=== PATIENT | male | born 1945 | race Caucasian/White ===

== ENCOUNTER 2019-09-12 11:20 | Inpatient (IN) | payer MEDICARE, BC ==
[~2019-09-12] VITALS: Ht 188 cm; Wt 90.9 kg
--- NOTE | 2019-09-12 11:36 | NUR ---
PT ARRIVED VIA WHEELCHAIR TO ROOM, AT BEDSIDE BUT WAS INFORMED SHE COULD STAY ONLY A SHORT AMOUNT OF TIME. WILL PLACE I/V AND DO ADMISSION SHORTLY. CL INREACH, SRX2. PT IS ALERT AND ORIENTED, UP WITHOUT ASSIST.
[2019-09-12] MEDS ORDERED: BAYER CHEWABLE81 MG PO (11:45)
[2019-09-12] MEDS ORDERED: COZAAR50 MG PO (11:45)
[2019-09-12] MEDS ORDERED: FLOMAX0.4 MG PO (11:45)
[2019-09-12] MEDS ORDERED: LIPITOR10 MG PO (11:46)
[2019-09-12] MEDS ORDERED: PLAVIX75 MG PO (11:47)
--- NOTE | 2019-09-12 11:58 | NUR ---
PT HAD GRAFT IN GROIN D/T RIGHT KNEE ANURYSIM.
[2019-09-12 13:00] LABS: BASOPHILS 0.2 % (0-2); HEMATOCRIT 41.4 % (42.0-54.0); HEMOGLOBIN 13.4 g/dL (13.5-17.5); LYMPHOCYTES 18.9 % (15-50); MCH 30.2 pg (26.0-34.0); MCHC 32.4 g/dL (31.0-37.0); MCV 93.5 fL (80.0-100.0); MEAN PLATELET VOLUME 9.3 fL (7.4-10.4); MONOCYTES 8.8 % (2-11); NEUTROPHILS 65.1 % (40-80); PLATELET COUNT 199 10x3/uL (130-400); RBC 4.43 10x6/uL (4.20-6.10); RDW 13.8 % (11.5-14.5); WBC 4.9 10x3/uL (4.8-10.8)
[2019-09-12 13:17] LABS: ALBUMIN 3.9 g/dL (3.4-5.0); ALKALINE PHOSPHATASE 107 U/L (30-120); ALT (SGPT) 20 U/L (10-68); BILIRUBIN - TOTAL 0.49 mg/dL (0.2-1.3); CALC OSMOLALITY 281 mosm/kg (275-300); CALCIUM 8.9 mg/dL (8.5-10.1); CARBON DIOXIDE 25.7 mmol/L (21.0-32.0); CHLORIDE - SERUM 106 mmol/L (98-107); CREATININE - SERUM 1.1 mg/dL (0.6-1.3); GLUCOSE 97 mg/dL (74-106); MAGNESIUM - SERUM 2.1 mg/dL (1.8-2.4); PHOSPHOROUS 4.2 mg/dL (2.5-4.9); POTASSIUM - SERUM 4.2 mmol/L (3.5-5.1); PROTEIN - SERUM 7.5 g/dL (6.4-8.2); SODIUM 140 mmol/L (136-145); TROPONIN-I < 0.017 ng/mL (0.000-0.060); UREA NITROGEN 20 mg/dL (7-18); eGFR NON AFRICAN AMERICAN 69 mL/min (90-120)
[2019-09-12 13:57] VITALS: BP 177/81
[2019-09-12 14:29] LABS: % SATURATION 27 % (15-55); IRON 77 ug/dl (35-150); TOTAL IRON BIND CAPACITY 278 ug/dl (260-445); UNSAT IRON BIND CAPACITY 201 ug/dl (150-375)
--- NOTE | 2019-09-12 14:38 | NUR ---
PT ALERT AND OREINTED, STARTED FLUIDS/MEDS INDICATED. PT HAD ALREADY TAKEN ALL DAILY DOSES OF HOME MEDICATIONS. NO COMPLAINTS OR CONCERNS, ALL QUESTIONS ANSWERED TO THE BEST OF MY ABILITY. CL IN REACH, SRX2.
[2019-09-12 17:46] LABS: APTT 27.9 SECONDS (22.8-39.4); INR 1.03 (0.85-1.17); PROTIME 13.4 SECONDS (11.6-15.0)
[2019-09-12 17:51] VITALS: BP 189/86
[2019-09-12 18:16] VITALS: BP 177/81; BMI 26.3
[2019-09-12 18:17] LABS: D-DIMER-QUANTITATIVE 6.6 ug/mLFEU (0.20-0.54)
--- NOTE | 2019-09-12 18:27 | NUR ---
PT HAD ELIVATED JIHAN, CALLED IN TO [facility], ORDERED CTA CHEST PE PROTOCOL. PT WAS GIVEN URINAL AND HAS YET TO URINATE, UNABLE TO COLLECT URINE SPECIMINE ON MY SHIFT.
[2019-09-12 19:29] LABS: BILIRUBIN NEGATIVE (NEGATIVE); GLUCOSE NEGATIVE (NEGATIVE); KETONE NEGATIVE (NEGATIVE); NITRITE NEGATIVE (NEGATIVE); RED CELLS - URINE 0-5 /hpf (0-5); UROBILINOGEN NORMAL (NORMAL); WHITE CELLS - URINE OCC /hpf (NEGATIVE)
[2019-09-12 20:27] VITALS: BP 192/90
--- NOTE | 2019-09-12 20:45 | NUR ---
PT BACK FROM CT-A. HE STATES HE IS WORRIED ABOUT THE RESULTS. HE DENIES PAIN. HE STATES HE GETS VERY SHORT OF BREATH WHEN HE MOVES AROUND. HIS O2 SAT ON ROOM AIR IS 94%. HE DENIES PAIN OR NEEDS. CALL LIGHT WITHIN REACH AND BED IS LOW.
[2019-09-12 21:47] VITALS: BP 172/89
[2019-09-12 23:43] VITALS: BP 167/77
[2019-09-13 05:23] VITALS: BP 184/106
[2019-09-13 06:10] VITALS: BP 168/78
[2019-09-13 06:46] LABS: BASOPHILS 0.2 % (0-2); EOSINOPHILS 0 % (0-7); HEMATOCRIT 38.4 % (42.0-54.0); HEMOGLOBIN 12.5 g/dL (13.5-17.5); IMMATURE GRANULOCYTES 0.2 % (0-5); LYMPHOCYTES 8.6 % (15-50); MCHC 32.6 g/dL (31.0-37.0); MCV 92.3 fL (80.0-100.0); MEAN PLATELET VOLUME 9.6 fL (7.4-10.4); MONOCYTES 1.9 % (2-11); NEUTROPHILS 89.1 % (40-80); PLATELET COUNT 197 10x3/uL (130-400); RBC 4.16 10x6/uL (4.20-6.10); RDW 13.7 % (11.5-14.5)
[2019-09-13 06:47] LABS: CALCIUM 9.2 mg/dL (8.5-10.1); CARBON DIOXIDE 22.7 mmol/L (21.0-32.0); CREATININE - SERUM 1.3 mg/dL (0.6-1.3); POTASSIUM - SERUM 4.7 mmol/L (3.5-5.1)
[2019-09-13 07:06] LABS: WBC 6.2 10x3/uL (4.8-10.8)
[2019-09-13 09:21] VITALS: BP 156/80
[2019-09-13 13:03] VITALS: BP 146/72
[2019-09-13 13:23] VITALS: Ht 188 cm; Wt 90.9 kg
[2019-09-13 17:38] VITALS: BP 147/82
--- NOTE | 2019-09-13 19:00 | NUR ---
ALERT AND AWAKE NEEDS SEN TO BED LOW AND LOCKED AND CALL LIGHT IS WITH PT
[2019-09-13 21:31] VITALS: BP 172/93
[2019-09-14 00:30] VITALS: BP 196/98
--- NOTE | 2019-09-14 04:11 | NUR ---
recheck bp 190/94
[2019-09-14 04:39] VITALS: BP 215/120
[2019-09-14 06:28] LABS: BASOPHILS 0.1 % (0-2); EOSINOPHILS 0 % (0-7); HEMATOCRIT 41.7 % (42.0-54.0); HEMOGLOBIN 13.4 g/dL (13.5-17.5); IMMATURE GRANULOCYTES 0.3 % (0-5); MCHC 32.1 g/dL (31.0-37.0); MCV 93.3 fL (80.0-100.0); MEAN PLATELET VOLUME 9.7 fL (7.4-10.4); MONOCYTES 2.7 % (2-11); NEUTROPHILS 88.9 % (40-80); PLATELET COUNT 221 10x3/uL (130-400); RBC 4.47 10x6/uL (4.20-6.10)
[2019-09-14 06:35] LABS: ANION GAP 15.8 mmol/L (8-16); CALCIUM 9.2 mg/dL (8.5-10.1); CARBON DIOXIDE 23.1 mmol/L (21.0-32.0); CREATININE - SERUM 1.2 mg/dL (0.6-1.3); POTASSIUM - SERUM 4.9 mmol/L (3.5-5.1)
[2019-09-14 06:36] LABS: WBC 7.8 10x3/uL (4.8-10.8)
[2019-09-14 07:59] VITALS: BP 190/98
[2019-09-14 11:41] VITALS: BP 147/77
--- NOTE | 2019-09-14 12:50 | NUR ---
WALK TEST PERFORMED. PT O2 SATS ON ROOM AIR BEFORE AND AFTER WALKING WERE 97%.
--- NOTE | 2019-09-14 13:13 | NUR ---
I have reviewed this patient and I concur with the Shift Assessment completed by the Licensed Practical Nurse today this shift.
--- NOTE | 2019-09-14 14:13 | MORECARE ---
CASE MANAGEMENT DISCHARGE SUMMARY PATIENT: TUAN MEYER UNIT: [id number] ADM DATE: 09/12/19 AGE: 74 : 44 SEX: M ROOM/BED: D.5466 AUTHOR: TARIK MENENDEZ PHYSICIAN: REFERRING PHYSICIAN: AUTUMN ODONNELL MD DATE OF SERVICE: 09/14/19 Discharge Plan Patient Name: TUAN MEYER Facility: [facility]:[place] : 1945 Planned Disposition: Home Anticipated Discharge Date: Discharge Date: Expected LOS: Initial Reviewer: [id number] Initial Review Date: 09/12/2019 Generated: 09/14/19 3:13 pm DCP- Discharge Planning Updated by [id number]: Rosette Ortez on 09/14/19 12:[address] CM met with patient to complete initial dc planning assessment. CM educated patient on the CM role and verbal consent given by patient to complete assessment. CM verified patient's address, phone number, and emergency contact phone numbers. Patient lives at home with his , Abbie ([phone]. Patient currently is independent of all ADL's. At discharge patient plans to return home and feels this is a safe discharge. Patient denied further known discharge needs at this time. . Transportation provider at discharge will be his Abbie . CM will continue to follow and will assist as needed with dc plans/needs. Rosette Ortez MSN,RN,CM Patient Name: TUAN MEYER Page [phone] at 1413 All edits/amendments must be made on the electronic document DICTATION DATE: 09/14/19 1413 DIRECTOR HEMATOLOGY: SAVAGE 09/14/19 1413 RPT#: [id number] DC DATE: STATUS: ADM IN [facility] [address] [place] [address] END OF REPORT
--- NOTE | 2019-09-14 16:06 | NUR ---
ATTEMPTED TO PAGE CARDIOLOGY ABOUT PATIENTS DISCHARGE AND WAS UNSUCCESSFUL EVERYTIME. PT NOW THREATENING TO LEAVE AMA. WILL GO AHEAD AND DC PT.
--- NOTE | 2019-09-14 16:13 | NUR ---
PT DISCHARGED HOME VIA WHEELCHAIR WITH FAMILY. PIV REMOVED WITH CATHETER TIP FULLY INTACT. PT SIGNED PROPER DISCHARGE INSTRUCTIONS AND REMOVED ALL VALUABLES FROM THE ROOM. NEVER RECEIVED RETURN PAGE FROM CARDIOLOGY.
--- NOTE | 2019-09-15 08:04 | EC ---
PATIENT:TUAN MEYER DATE OF SERVICE: 09/12/19 SEX: M MEDICAL RECORD: [id number] DATE OF : 43 LOCATION:D.M2 D.213 AGE OF PATIENT: 74 ADMISSION DATE: 09/12/19 REFERRING PHYSICIAN: INTERPRETING PHYSICIAN: CAROLINE BAUER MD ECHOCARDIOGRAM REPORT ECHO CHARGES 4 ECHO COMPLETE Date: 09/12/19 CLINICAL DIAGNOSIS: BRADYCARDIA ECHOCARDIOGRAPHIC MEASUREMENTS (adult normal given) AC root (d.<3.7cm) 3.9 cm LV Septum d (<1.2 cm> 1.5 cm Valve Excursion 2.3 cm LV Septum (systole) 2.3 cm Left Atria (s.<4.0cm> 3.5 cm LVPW d(<1.2cm) 1.4 cm RV (d.<2.3cm) 3.1 cm LVPW (sytole) 1.4 cm LV diastole(<5.6CM) 6.6 cm MV E-F(>70mm/sec) cm LV systole 3.4 cm LVOT Diameter 2.5 cm MV exc.(>10mm) cm Est.ejection fraction (50-75%) % DOPPLER: LVIT cm/sec A 44.0 cm/sec E 72.0 cm/sec LA cm/sec RVSP 42.0 mmHg LVOT 124 cm/sec AOP1/2T m/s Asc. Ao 149 cm/sec RVOT 82.0 cm/sec RA cm/sec PA 106 cm/sec AV Gradient Peak 8.9 mmHg AV Mean 4.2 mmHg AV Area 3.2 cm MV Gradient Peak 4.0 mmHg MV Mean 0.95 mmHg MV Area cm COMMENTS: Casino Controller: 1 JAMIR BAILONOE Goodwill Ambassador: 3 Dr. Lee TAPE# PACS Pericardial Effusion N DATE OF SERVICE: Adequate 2D, color flow imaging, spectral Doppler, and M-Mode. LVH is present. LV internal dimension are dilated. LV wall motion is normal. EF is greater than or equal to 55%. Aortic valve is tricuspid. No evidence of stenosis by Doppler interrogation. Left atrium is normal at 3.5 cm. Mitral valve shows no prolapse. Trace MR. Right-sided chambers are grossly normal. Mild TR. ECHOCARDIOGRAM REPORT [id number] TUAN MEYER TRANSINT:[id number] Voice Confirmation ID: [id number] DOCUMENT ID: [id number] CAROLINE BAUER MD at 0804 CC: [id number] DICTATION DATE: 09/13/19 131 BARIATRIC COORDINATOR: 09/13/191903 DIS IN 09/14/19 [facility] [address] [place] [id number]
== END 2019-09-14 16:14 | disposition home or self-care (01) | DRG 189 ==
LOC: D.M2 11:20
PROVIDERS: Internal Medicine Pulmonary Disease; ADMIT Internal Medicine Nephrology; ATTEND Internal Medicine Nephrology
DX: J96.01 Acute respiratory failure with hypoxia (principal); N17.9 Acute kidney failure, unspecified; R00.1 Bradycardia, unspecified; D64.9 Anemia, unspecified; I10 Essential (primary) hypertension; E78.5 Hyperlipidemia, unspecified; N40.0 Benign prostatic hyperplasia without lower urinary tract symptoms; I73.9 Peripheral vascular disease, unspecified; J43.9 Emphysema, unspecified

== ENCOUNTER → 2019-10-12 13:32 | Outpatient (CLI) | payer MEDICARE, BC ==
[2019-09-13 13:23] VITALS: BMI 26.3
[~2019-10-12 13:32] MED LIST: BAYER CHEWABLE81 MG PO; COZAAR50 MG PO; FLOMAX0.4 MG PO; LIPITOR10 MG PO; PLAVIX75 MG PO
== END | disposition home or self-care (01) ==
LOC: D.LABREF 13:32
PROVIDERS: ATTEND Internal Medicine Pulmonary Disease
DX: Z11.59 Encounter for screening for other viral diseases (principal)

== ENCOUNTER → 2019-10-13 13:01 | Outpatient (CLI) | payer MEDICARE, BC ==
[2019-09-13 13:23] VITALS: BMI 26.3
== END | disposition home or self-care (01) ==
LOC: D.RT 13:00
PROVIDERS: ATTEND Internal Medicine Pulmonary Disease
DX: J44.9 Chronic obstructive pulmonary disease, unspecified (principal)

== ENCOUNTER 2019-10-25 05:52 | Inpatient (IN) | payer MEDICARE, BC ==
[~2019-10-25] VITALS: Ht 188 cm; Wt 90.9 kg
[2019-10-25 06:09] LABS: BASOPHILS 0.4 % (0-2); EOSINOPHILS 4.1 % (0-7); HEMOGLOBIN 13.9 g/dL (13.5-17.5); IMMATURE GRANULOCYTES 0.5 % (0-5); LYMPHOCYTES 11.1 % (15-50); MCHC 32.3 g/dL (31.0-37.0); MCV 92.9 fL (80.0-100.0); MEAN PLATELET VOLUME 8.9 fL (7.4-10.4); MONOCYTES 13.6 % (2-11); NEUTROPHILS 70.3 % (40-80); PLATELET COUNT 250 10x3/uL (130-400); RBC 4.63 10x6/uL (4.20-6.10); RDW 13.7 % (11.5-14.5); WBC 7.7 10x3/uL (4.8-10.8)
[2019-10-25 06:22] LABS: ANION GAP 12.4 mmol/L (8-16); CALCIUM 9.2 mg/dL (8.5-10.1); CARBON DIOXIDE 24.9 mmol/L (21.0-32.0); CREATININE - SERUM 1.4 mg/dL (0.6-1.3); POTASSIUM - SERUM 4.3 mmol/L (3.5-5.1)
[2019-10-25 06:32] LABS: APTT 25.3 SECONDS (22.8-39.4); INR 0.96 (0.85-1.17); PROTIME 12.8 SECONDS (11.6-15.0)
[2019-10-25] MEDS ORDERED: PROAIR HFA8.5 G1 INH (07:47)
[2019-10-25] MEDS ORDERED: SINGULAIR10 MG PO (07:48)
[2019-10-25] MEDS ORDERED: ZYRTEC10 MG PO (07:48)
[2019-10-25] MEDS ORDERED: IPRAT-ALBUT 0.5-3 ML UPD (07:49)
[2019-10-25] MEDS ORDERED: EFUDEX 5 % CREA40 GM TOPICAL (07:50)
[2019-10-25 08:01] VITALS: BP 178/113; BMI 26.3
--- NOTE | 2019-10-25 08:07 | NUR ---
0730-BLOOD PRESSURE CALLED TO CARLITA BOSS RN, ORDER RECEIVED TO ADMINISTER DAILY ANTI-HYPERTENSIVE MEDICATION.
--- NOTE | 2019-10-25 10:45 | NUR ---
PATIENT IN BED WITH IV INTACT. CT ON 20 CM SUCTION. WALL SUCTION ON. NO COMPLAINTS OR SIGNS OF DISTRESS AT THIS TIME. FAMILY AT BEDSIDE. CALL LIGHT WITHIN REACH.
[2019-10-25 11:06] VITALS: BP 153/84; Ht 188 cm; Wt 90.9 kg
--- NOTE | 2019-10-25 12:44 | NUR ---
PATIENT SITTING UP IN BED WITH IV INTACT. NO COMPLAINTS. WANTING TO EAT LUNCH. TRAY ORDERED. FAMILY AT BEDSIDE. CALL LIGHT WITHIN REACH.
[2019-10-25 16:42] VITALS: BP 173/91
--- NOTE | 2019-10-25 19:00 | NUR ---
A&O X 4. SUPINE IN BED. REPORTS PAIN TO RIGHT CHESTUBE PLACEMENT SITE. DRESSING CDI, CONT LOW SUCTION IN USE. NO PAIN MEDS ORDERED, LUCAS MALAGON, CTM.
--- NOTE | 2019-10-25 19:23 | NUR ---
PATIENT IN BED WITH IV INTACT. NO COMPLAINTS OR SIGNS OF DISTRESS. CHEST TUBE INTACT. DRESSING INTACT. CALLED DR. ZAVALA FOR PAIN MEDS. CALL LIGHT WITHIN REACH.
[2019-10-25 20:00] VITALS: BP 177/86
--- NOTE | 2019-10-25 20:00 | NUR ---
C/O PAIN TO CHEST TUBE SITE, LUCAS MALAGON.
--- NOTE | 2019-10-25 21:00 | NUR ---
LUCAS PAGED FOR PAIN MEDICATION
[2019-10-26] VITALS: BP 136/87
--- NOTE | 2019-10-26 02:38 | NUR ---
I have reviewed this patient and I concur with the Shift Assessment completed by the Licensed Practical Nurse today this shift.
[2019-10-26 04:00] VITALS: BP 164/89
--- NOTE | 2019-10-26 07:00 | NUR ---
RECIEVED PT FROM PUBLIC INFORMATION RELATIONS MANAGER. 2L O2, RIGHT FOREARM IV SALINE LOCKED. RIGHT CHEST TUBE, LOW/CONTINUOUS SUCTION. PT IS ALERT AND ORIENTED, UP ADLIB. BED ALARM IS ON. SCD'S. BED IN LOWEST POSITION, BED RAILS X2, CALL LIGHT WITHIN REACH. WILL CONTINUE TO MONITOR.
[2019-10-26 09:11] VITALS: BP 139/90
[2019-10-26 12:22] VITALS: BP 132/76
[2019-10-26 17:04] VITALS: BP 140/79
[2019-10-26 20:00] VITALS: BP 126/64
[2019-10-27] VITALS: BP 110/80
--- NOTE | 2019-10-27 00:32 | NUR ---
I have reviewed this patient and I concur with the Shift Assessment completed by the Licensed Practical Nurse today this shift.
[2019-10-27 04:00] VITALS: BP 133/88
--- NOTE | 2019-10-27 04:50 | NUR ---
WOKE UP IN A SWEAT. AMBULATED INDEPENDENTLY TO CHAIR IN ROOM. DRESSING TO RIGHT CHEST TUBE STILL CDI, NO OUTPUT THIS SHIFT. CONTINUOUS SUCTION IN USE. GOWN AND LINENS CHANGED. CTM.
[2019-10-27 09:00] VITALS: BP 135/69
[2019-10-27 12:57] VITALS: BP 137/86
--- NOTE | 2019-10-27 19:32 | NUR ---
I have reviewed this patient and I concur with the Shift Assessment completed by the Licensed Practical Nurse today this shift.
[2019-10-27 20:00] VITALS: BP 129/61
[2019-10-28] VITALS: BP 130/90
--- NOTE | 2019-10-28 00:34 | NUR ---
I have reviewed this patient and I concur with the Shift Assessment completed by the Licensed Practical Nurse today this shift.
[2019-10-28 04:00] VITALS: BP 142/83
--- NOTE | 2019-10-28 08:54 | NUR ---
PATIENT AWAKE AND ALERT. IN BED. REQUESTED AND RECIEVED COFFEE WITH ONE CREAM. NO COMPLAINTS OF PAIN EXCEPT A LITTLE AROUND THE CHEST TUBE SITE. CL IN REACH. WCTM
--- NOTE | 2019-10-28 11:00 | NUR ---
PATIENT HAS NO NEEDS. CL IN REACH. WCTM
[2019-10-28 12:51] VITALS: BP 155/85
--- NOTE | 2019-10-28 14:30 | NUR ---
VISITOR IN ROOM. DR ZAVALA IN ROOM. QUESTIONS ASKED AND ANSWERED. CL IN REACH. NO NEEDS AT THIS TIME. ARAMIS
[2019-10-28 17:22] VITALS: BP 123/77
[2019-10-28 20:00] VITALS: BP 144/79
[2019-10-29] VITALS: BP 137/74
--- NOTE | 2019-10-29 02:48 | NUR ---
I have reviewed this patient and I concur with the Shift Assessment completed by the Licensed Practical Nurse today this shift.
[2019-10-29 04:00] VITALS: BP 145/94
[2019-10-29 09:12] VITALS: BP 143/89
[2019-10-29 13:11] VITALS: BP 121/72
[2019-10-29 17:05] VITALS: BP 143/93
--- NOTE | 2019-10-29 19:00 | NUR ---
BEDSIDE REPORT RECEIVED AND CARE OF PT ASSUMED. PT LYING IN LOW RUIZ'S POSITION RECEIVING UPDRAFT TX AT THIS TIME. RIGHT CHEST TUBE PATENT TO WATER SEAL. DRESSING DRY AND INTACT. PT REPORTS NO PAIN AT THIS ASSESSMENT. IV TO RIGHT HAND AND LEFT FA SALINE LOCKED.
--- NOTE | 2019-10-29 19:39 | NUR ---
I have reviewed this patient and I concur with the Shift Assessment completed by the Licensed Practical Nurse today this shift.
[2019-10-29 20:15] VITALS: BP 149/76
--- NOTE | 2019-10-29 21:00 | NUR ---
PT DECLINES NEED FOR PAIN MED AT THIS TIME. WILL CONTINUE TO MONITOR CLOSELY FOR NEEDS.
[2019-10-30 01:11] VITALS: BP 145/70
[2019-10-30 04:35] VITALS: BP 156/87
[2019-10-30 08:30] VITALS: BP 151/85
--- NOTE | 2019-10-30 12:00 | NUR ---
CHEST TUBE DISCONTINUED PER DR. EDWARDS WITH DRESSING APPLIED.
[2019-10-30 12:21] VITALS: BP 147/87
--- NOTE | 2019-10-30 16:00 | NUR ---
IV DISCONTINUED AND VERBALIZED UNDERSTANDING OF DISCHARGE INSTRUCTIONS. STABLE AT TIME OF DEPARTURE
--- NOTE | 2019-10-30 18:18 | MORECARE ---
CASE MANAGEMENT DISCHARGE SUMMARY PATIENT: TUAN MEYER UNIT: [id number] ADM DATE: 10/26/19 AGE: 74 : 44 SEX: M ROOM/BED: D.2207 AUTHOR: SHON,TARIK PHYSICIAN: REFERRING PHYSICIAN: AMIRA WEATHERS MD DATE OF SERVICE: 10/30/19 Discharge Plan Patient Name: TUAN MEYER Facility: [facility]:[place] : 1945 Planned Disposition: Home Anticipated Discharge Date: Discharge Date: 10/30/2019 Expected LOS: Initial Reviewer: [email or web address] Initial Review Date: 10/27/2019 Generated: 10/30/19 7:18 pm Comments DCP- Discharge Planning Updated by [email or web address]: Codie Aleman on 10/30/19 5:[address] Patient Name: TUAN MEYER Admission Status: Elective Accout number: [id number] Admission Date: 10-26-2019 : 1945 Admission Diagnosis:PNEUMOTHORAX, UNSPECIFIED Attending: AMIRA WEATHERS Current LOS: 4 Anticipated DC Date: Planned Disposition: Primary Insurance: MEDICARE A & B Discharge Planning Comments: CM met with patient to complete initial dc planning assessment. CM educated patient on the CM role and verbal consent given by patient to complete assessment. Patient lives at home with family. Patient is independent. At discharge patient plans to return home and feels this is a safe discharge. CM discussed availability of home health, rehab services, and medical equipment. Patient states he has home and portable 02 as well as a nebulizer. Patient will have family to transport home. Patient denied known discharge needs at this time. D/C IMM signed CM will continue to follow and will assist as needed with dc plans/needs. Guard Manager: Codie Aleman Coverage Notice Reviewer: [email or web address] Daniel Bailon Notice Issued Date-Time: 10/25/2019 17:06 Notice Type: Medicare Outpatient Observation Notice Notice Delivered To: Patient Relationship to Patient: Tactical/Mobile Watch Officer Name: Delivery Method: HAND - Hand Delivered Urvashi Days: Prior Verbal Notification: Recipient Understood Notice: Yes Recipient Signature: Yes Med Rec Note Co-signed by Attending: Coverage Notice Comment: Reviewer: [id number] - Codie Aleman Notice Issued Date-Time: 10/30/2019 12:50 Notice Type: IM Discharge Notice Notice Delivered To: Patient Relationship to Patient: Self Tactical/Mobile Watch Officer Name: Delivery Method: HAND - Hand Delivered Urvashi Days: Prior Verbal Notification: Recipient Understood Notice: Yes Recipient Signature: Yes Med Rec Note Co-signed by Attending: Coverage Notice Comment: Patient Name: TUAN MEYER Page [phone] at 1818 All edits/amendments must be made on the electronic document DICTATION DATE: 10/30/191817 LIVESTOCK NUTRITIONIST: SAVAGE 10/30/191817 RPT#: [id number] DC DATE:10/30/19 STATUS: DIS IN [facility] [address] [place] [address] END OF REPORT
--- NOTE | 2019-10-30 18:25 | MORECARE ---
CASE MANAGEMENT DISCHARGE SUMMARY PATIENT: TUAN MEYER UNIT: [id number] ADM DATE: 10/26/19 AGE: 74 : 44 SEX: M ROOM/BED: D.2207 AUTHOR: SHON,DOC PHYSICIAN: REFERRING PHYSICIAN: AMIRA WEATHERS MD DATE OF SERVICE: 10/30/19 Discharge Plan Patient Name: TUAN MEYER Facility: [facility]:[place] : 1945 Planned Disposition: Home Anticipated Discharge Date: Discharge Date: 10/30/2019 Expected LOS: Initial Reviewer: [email or web address] Initial Review Date: 10/27/2019 Generated: 10/30/19 7:25 pm Comments DCP- Discharge Planning Updated by [id number]: Codie Aleman on 10/30/19 5:[address] Patient Name: TUAN MEYER Admission Status: Elective Accout number: [id number] Admission Date: 10-26-2019 : 1945 Admission Diagnosis:PNEUMOTHORAX, UNSPECIFIED Attending: AMIRA WEATHERS Current LOS: 4 Anticipated DC Date: Planned Disposition: Primary Insurance: MEDICARE A & B Discharge Planning Comments: CM met with patient to complete initial dc planning assessment. CM educated patient on the CM role and verbal consent given by patient to complete assessment. Patient lives at home with family. Patient is independent. At discharge patient plans to return home and feels this is a safe discharge. CM discussed availability of home health, rehab services, and medical equipment. Patient states he has home and portable 02 as well as a nebulizer. Patient will have family to transport home. Patient denied known discharge needs at this time. D/C IMM signed CM will continue to follow and will assist as needed with dc plans/needs. Book Shelver: Codie Aleman DCPIA - Discharge Planning Initial Assessment Updated by [email or web address]: Codie Aleman on 10/30/19 6:19 pm * Is the patient Alert and Oriented? Yes * How many steps to enter\exit or inside your home? * PCP [facility] * [facility] * Preadmission Environment Home with Family * ADLs Independent * Other Equipment HOME / PORT * List name and contact numbers for known caregivers / representatives who currently or will assist patient after discharge: NICOLE MEYER - [phone] * Verbal permission to speak to the caregivers and representatives has been obtained from the patient. Yes * Community resources currently utilized None * Additional services required to return to the preadmission environment? No * Can the patient safely return to the preadmission environment? Yes * Has this patient been hospitalized within the prior 30 days at any hospital? No Coverage Notice Reviewer: [email or web address] Daniel Bailon Notice Issued Date-Time: 10/25/2019 17:06 Notice Type: Medicare Outpatient Observation Notice Notice Delivered To: Patient Relationship to Patient: Counter Tender Name: Delivery Method: HAND - Hand Delivered Urvashi Days: Prior Verbal Notification: Recipient Understood Notice: Yes Recipient Signature: Yes Med Rec Note Co-signed by Attending: Coverage Notice Comment: Reviewer: [id number] - Codie Aleman Notice Issued Date-Time: 10/30/2019 12:50 Notice Type: IM Discharge Notice Notice Delivered To: Patient Relationship to Patient: Self Counter Tender Name: Delivery Method: HAND - Hand Delivered Urvashi Days: Prior Verbal Notification: Recipient Understood Notice: Yes Recipient Signature: Yes Med Rec Note Co-signed by Attending: Coverage Notice Comment: Last DP export: 10/30/19 5:18 pm Patient Name: TUAN MEYER Page [phone] at 1825 All edits/amendments must be made on the electronic document DICTATION DATE: 10/30/191824 RESIDENCE DIRECTOR: SAVAGE 10/30/191824 RPT#: [id number] DC DATE:10/30/19 STATUS: DIS IN [facility] [address] [place] [address] END OF REPORT
--- NOTE | 2019-10-31 09:24 | MORECARE ---
CASE MANAGEMENT DISCHARGE SUMMARY PATIENT: TUAN MEYER UNIT: [id number] ADM DATE: 10/26/19 AGE: 74 : 44 SEX: M ROOM/BED: D.2207 AUTHOR: SHON,DOC PHYSICIAN: REFERRING PHYSICIAN: AMIRA WEATHERS MD DATE OF SERVICE: 10/31/19 Discharge Plan Patient Name: TUAN MEYER Facility: [facility]:[place] : 1945 Planned Disposition: Home Anticipated Discharge Date: Discharge Date: 10/30/2019 Expected LOS: Initial Reviewer: [email or web address] Initial Review Date: 10/27/2019 Generated: 10/31/19 10:23 am Comments DCP- Discharge Planning Updated by [id number]: Codie Aleman on 10/30/19 5:[address] Patient Name: TUAN MEYER Admission Status: Elective Accout number: [id number] Admission Date: 10-26-2019 : 1945 Admission Diagnosis:PNEUMOTHORAX, UNSPECIFIED Attending: AMIRA WEATHERS Current LOS: 4 Anticipated DC Date: Planned Disposition: Primary Insurance: MEDICARE A & B Discharge Planning Comments: CM met with patient to complete initial dc planning assessment. CM educated patient on the CM role and verbal consent given by patient to complete assessment. Patient lives at home with family. Patient is independent. At discharge patient plans to return home and feels this is a safe discharge. CM discussed availability of home health, rehab services, and medical equipment. Patient states he has home and portable 02 as well as a nebulizer. Patient will have family to transport home. Patient denied known discharge needs at this time. D/C IMM signed CM will continue to follow and will assist as needed with dc plans/needs. Rn Hemo Dialysis: Codie Aleman DCPIA - Discharge Planning Initial Assessment Updated by [email or web address]: Codie Aleman on 10/30/19 6:19 pm * Is the patient Alert and Oriented? Yes * How many steps to enter\exit or inside your home? * PCP AMBER * [facility] * Preadmission Environment Home with Family * ADLs Independent * Other Equipment HOME / PORT * List name and contact numbers for known caregivers / representatives who currently or will assist patient after discharge: NICOLE MEYER - [phone] * Verbal permission to speak to the caregivers and representatives has been obtained from the patient. Yes * Community resources currently utilized None * Additional services required to return to the preadmission environment? No * Can the patient safely return to the preadmission environment? Yes * Has this patient been hospitalized within the prior 30 days at any hospital? No Coverage Notice Reviewer: [id number] Daniel Bailon Notice Issued Date-Time: 10/25/2019 17:06 Notice Type: Medicare Outpatient Observation Notice Notice Delivered To: Patient Relationship to Patient: Patient Coordinator Name: Delivery Method: HAND - Hand Delivered Urvashi Days: Prior Verbal Notification: Recipient Understood Notice: Yes Recipient Signature: Yes Med Rec Note Co-signed by Attending: Coverage Notice Comment: Reviewer: [id number] - Codie Aleman Notice Issued Date-Time: 10/30/2019 12:50 Notice Type: IM Discharge Notice Notice Delivered To: Patient Relationship to Patient: Self Patient Coordinator Name: Delivery Method: HAND - Hand Delivered Urvashi Days: Prior Verbal Notification: Recipient Understood Notice: Yes Recipient Signature: Yes Med Rec Note Co-signed by Attending: Coverage Notice Comment: Last DP export: 10/30/19 5:25 pm Patient Name: TUAN MEYER Page [phone] at 0924 All edits/amendments must be made on the electronic document DICTATION DATE: 10/31/19922 SOLE CONDITIONER: SAVAGE 10/31/19922 RPT#: [id number] DC DATE:10/30/19 STATUS: DIS IN [facility] [address] [place] [address] END OF REPORT
== END 2019-10-30 16:00 | disposition home or self-care (01) | DRG 200 ==
LOC: D.SP 05:52 → D.CT 08:00 → D.SP 08:00 → D.MS 09:48 → D.SP 10-26 10:41 → D.MS 10-26 10:41
PROVIDERS: Specialist; ADMIT Internal Medicine Pulmonary Disease; ATTEND Internal Medicine Pulmonary Disease
PROC: 0BBF3ZX Excision of Right Lower Lung Lobe, Percutaneous Approach, Diagnostic (ICD-10-PCS; 2019-10-25)
PROC: 0W9930Z Drainage of Right Pleural Cavity with Drainage Device, Percutaneous Approach (ICD-10-PCS; principal; 2019-10-25 08:00)
PROC: 0BBF3ZX Excision of Right Lower Lung Lobe, Percutaneous Approach, Diagnostic (ICD-10-PCS; 2019-10-27)
DX: J93.9 Pneumothorax, unspecified (principal); J96.11 Chronic respiratory failure with hypoxia; J43.9 Emphysema, unspecified; G47.33 Obstructive sleep apnea (adult) (pediatric); R91.1 Solitary pulmonary nodule; Z87.891 Personal history of nicotine dependence; Z86.73 Personal history of transient ischemic attack (TIA), and cerebral infarction without residual deficits

== ENCOUNTER → 2020-06-22 14:37 | Outpatient (CLI) | payer MEDICARE, BC ==
[2019-10-25 11:06] VITALS: BMI 25.7
[~2020-06-22 14:37] MED LIST changes: +EFUDEX 5 % CREA40 GM TOPICAL; +IPRAT-ALBUT 0.5-3 ML UPD; +PROAIR HFA8.5 G1 INH; +SINGULAIR10 MG PO; +ZYRTEC10 MG PO
== END | disposition home or self-care (01) ==
LOC: D.LAB 14:37
PROVIDERS: ATTEND Internal Medicine Pulmonary Disease
DX: Z20.822 Contact with and (suspected) exposure to COVID-19 (principal)

== ENCOUNTER 2020-06-27 09:20 | Day surgery (SDC) | payer MEDICARE, BC ==
[~2020-06-27] VITALS: Ht 188 cm; Wt 99.8 kg
[2020-06-27 09:29] LABS: HEMATOCRIT 41.7 % (42.0-54.0); HEMOGLOBIN 14.1 g/dL (13.5-17.5); MCH 30.1 pg (26.0-34.0); MCHC 33.8 g/dL (31.0-37.0); MCV 89.1 fL (80.0-100.0); MEAN PLATELET VOLUME 8.6 fL (7.4-10.4); RBC 4.68 10x6/uL (4.20-6.10); RDW 13.4 % (11.5-14.5)
[2020-06-27 11:02] LABS: APTT 26.3 SECONDS (22.8-39.4); INR 1.08 (0.85-1.17); PROTIME 12.9 SECONDS (11.6-15.0)
[2020-06-27] MEDS ORDERED: FUROSEMIDE40 MG PO (11:33)
[2020-06-27 11:43] VITALS: BP 116/75; Ht 188 cm; Wt 99.8 kg
--- NOTE | 2020-06-27 13:59 | NUR ---
1308 VITAL SIGNS ARE BEING RECORDED ON POST PROCEDURE FORM AND IN THE PAPER CHART FOR DOCUMENTATION. 1343 PORTABLE CHEST X-RAY COMPLETED.
--- NOTE | 2020-06-27 15:50 | NUR ---
1430 CXR REPORT NOTED. NO PNEUMOTHORAX. PT GIVEN A SODA REQUESTED TO DRINK. 1435 IV DC'D. CATHETER TIP INTACT. PRESSURE HELD UNTIL BLEEDING CEASED. BANDAID APPLIED. 1450 PT VOICES UNDERSTANDING OF DISCHARGE INSTRUCTIONS THAT WERE REVIEWED WITH HIM.
[2020-06-28 19:09] LABS: ACID FAST SMEAR Negative (()); AFB SPECIMEN PROCESSING Concentration (())
== END 2020-06-27 14:50 | disposition home or self-care (01) ==
LOC: D.OPS 09:20
PROVIDERS: Anesthesiology; ATTEND Internal Medicine Pulmonary Disease
DX: R91.1 Solitary pulmonary nodule (principal); R06.02 Shortness of breath; R05 Cough; R91.8 Other nonspecific abnormal finding of lung field; J44.9 Chronic obstructive pulmonary disease, unspecified; G47.33 Obstructive sleep apnea (adult) (pediatric); J96.11 Chronic respiratory failure with hypoxia; I10 Essential (primary) hypertension; E78.5 Hyperlipidemia, unspecified

== ENCOUNTER → 2020-07-04 09:32 | Outpatient (CLI) | payer MEDICARE, BC ==
[2020-06-27 11:43] VITALS: BMI 28.3
[~2020-07-04 09:32] MED LIST changes: +FUROSEMIDE40 MG PO
[2020-07-06 10:12] LABS: ACID FAST SMEAR Negative (()); AFB SPECIMEN PROCESSING Concentration (()); FUNGUS STAIN Final report (())
== END | disposition home or self-care (01) ==
LOC: D.LAB 09:32
PROVIDERS: ATTEND Internal Medicine Pulmonary Disease
DX: J44.9 Chronic obstructive pulmonary disease, unspecified (principal)

== ENCOUNTER 2020-08-02 11:46 | Inpatient (IN) | payer MEDICARE, BC ==
[~2020-08-02] VITALS: Ht 188 cm; Wt 100.9 kg
[2020-08-02 12:30] LABS: BASOPHILS 0.1 % (0-2); EOSINOPHILS 0.6 % (0-7); HEMATOCRIT 38.6 % (42.0-54.0); HEMOGLOBIN 13.1 g/dL (13.5-17.5); IMMATURE GRANULOCYTES 0.2 % (0-5); LYMPHOCYTE ABS# 0.53 10x3/uL (1.32-3.57); LYMPHOCYTES 6.6 % (15-50); MCH 30.8 pg (26.0-34.0); MCHC 33.9 g/dL (31.0-37.0); MCV 90.6 fL (80.0-100.0); MEAN PLATELET VOLUME 9.2 fL (7.4-10.4); MONOCYTES 10.5 % (2-11); NEUTROPHIL ABS# 6.63 10x3/uL (1.78-5.38); PLATELET COUNT 167 10x3/uL (130-400); RBC 4.26 10x6/uL (4.20-6.10); RDW 13.8 % (11.5-14.5); WBC 8.1 10x3/uL (4.8-10.8)
[2020-08-02 12:42] LABS: CALC OSMOLALITY 285 mosm/kg (275-300); CALCIUM 9.3 mg/dL (8.5-10.1); CARBON DIOXIDE 23.1 mmol/L (21.0-32.0); CHLORIDE - SERUM 103 mmol/L (98-107); CREATININE - SERUM 1.6 mg/dL (0.6-1.3); GLUCOSE 117 mg/dL (74-106); POTASSIUM - SERUM 4.1 mmol/L (3.5-5.1); SODIUM 138 mmol/L (136-145); UREA NITROGEN 38 mg/dL (7-18); eGFR NON AFRICAN AMERICAN 45 mL/min (90-120)
[2020-08-02 12:45] LABS: APTT 25.4 SECONDS (22.8-39.4); INR 1.11 (0.85-1.17); PROTIME 13.3 SECONDS (11.6-15.0)
[2020-08-02 12:59] LABS: ALKALINE PHOSPHATASE 102 U/L (30-120); ALT (SGPT) 36 U/L (10-68); BILIRUBIN - TOTAL 0.56 mg/dL (0.2-1.3); CKMB 19.4 U/L (0.0-3.6); CREATINE KINASE 929 UL (21-232); MAGNESIUM - SERUM 2.2 mg/dL (1.8-2.4); PRO BNP 208 pg/mL (0-450); PROTEIN - SERUM 7.3 g/dL (6.4-8.2); TROPONIN-I 0.024 ng/mL (0.000-0.060)
--- NOTE | 2020-08-02 15:16 | NUR ---
TRAUMA BAND PLACED ON PATIENT - [id number]
[2020-08-02 16:17] VITALS: BP 98/74
[2020-08-02 17:07] VITALS: BP 134/71; Ht 188 cm; Wt 100.9 kg
[2020-08-02 20:00] VITALS: BP 111/58
[2020-08-03] VITALS: BP 116/77
[2020-08-03 04:00] VITALS: BP 126/71
--- NOTE | 2020-08-03 04:12 | NUR ---
ASSESSED AT THE BEGINNING OF THE SHIFT. PT IS ALERT AND ORIENTED, ABLE TO VERBALIZE NEEDS. HE HAS O2 AT 4 LITERS AND IS USING A URINAL TO VOID. SHE STATED HE IS USING O2 AT HOME ALSO. HE HAS RECEIVED PAIN MEDS REQUESTED AND ORDERED. HE HAS BEEN SLEEPING SOME AND NO COMPLAINTS HAVE BEEN VOICED
[2020-08-03 06:52] LABS: BASOPHILS 0.2 % (0-2); EOSINOPHILS 2.1 % (0-7); HEMATOCRIT 36.6 % (42.0-54.0); HEMOGLOBIN 11.7 g/dL (13.5-17.5); IMMATURE GRANULOCYTES 0.2 % (0-5); LYMPHOCYTE ABS# 0.43 10x3/uL (1.32-3.57); LYMPHOCYTES 7.6 % (15-50); MCH 29.7 pg (26.0-34.0); MEAN PLATELET VOLUME 9.1 fL (7.4-10.4); MONOCYTES 10.6 % (2-11); NEUTROPHIL ABS# 4.48 10x3/uL (1.78-5.38); NEUTROPHILS 79.3 % (40-80); PLATELET COUNT 179 10x3/uL (130-400); RBC 3.94 10x6/uL (4.20-6.10); RDW 14.1 % (11.5-14.5)
[2020-08-03 07:16] LABS: ALBUMIN 3.3 g/dL (3.4-5.0); ALKALINE PHOSPHATASE 85 U/L (30-120); ALT (SGPT) 27 U/L (10-68); BILIRUBIN - TOTAL 0.85 mg/dL (0.2-1.3); CALC OSMOLALITY 278 mosm/kg (275-300); CALCIUM 8.4 mg/dL (8.5-10.1); CARBON DIOXIDE 24.9 mmol/L (21.0-32.0); CHLORIDE - SERUM 103 mmol/L (98-107); CKMB 3.8 U/L (0.0-3.6); CREATININE - SERUM 1.4 mg/dL (0.6-1.3); GLUCOSE 115 mg/dL (74-106); MAGNESIUM - SERUM 2.1 mg/dL (1.8-2.4); POTASSIUM - SERUM 4.5 mmol/L (3.5-5.1); PROTEIN - SERUM 6.5 g/dL (6.4-8.2); SODIUM 136 mmol/L (136-145); TROPONIN-I 0.023 ng/mL (0.000-0.060); UREA NITROGEN 29 mg/dL (7-18); eGFR NON AFRICAN AMERICAN 52 mL/min (90-120)
[2020-08-03 07:19] LABS: CREATINE KINASE 609 UL (21-232)
[2020-08-03 07:20] LABS: WBC 5.7 10x3/uL (4.8-10.8)
[2020-08-03 07:21] LABS: MCV 92.9 fL (80.0-100.0)
--- NOTE | 2020-08-03 07:47 | NUR ---
CALL TO RESP. SOB AND SATS 79-80% ON 5 LITERS
--- NOTE | 2020-08-03 08:13 | NUR ---
RESP THERAPY HAS BEEN UP ON UNIT. PATIENT PLACED ON 10 LIETRS HIGH FLOW. STILL SHORT OF BREATH. I HAVE TALKED WITH NOMAN HUGHES APN, ORDERS RECIEVED AND INITIATED.ASSESSMENT PER FLOW SHEET.
[2020-08-03 08:26] LABS: INR 1.2 (0.85-1.17); PROTIME 14.1 SECONDS (11.6-15.0)
[2020-08-03 08:34] VITALS: BP 106/76
[2020-08-03 09:00] LABS: CKMB 3.2 U/L (0.0-3.6); CREATINE KINASE 599 UL (21-232); TROPONIN-I 0.021 ng/mL (0.000-0.060)
[2020-08-03 09:45] LABS: D-DIMER-QUANTITATIVE 7.45 ug/mLFEU (0.20-0.54)
[2020-08-03 13:06] VITALS: BP 109/71
[2020-08-03 13:07] LABS: BILIRUBIN NEGATIVE (NEGATIVE); KETONE NEGATIVE (NEGATIVE); NITRITE NEGATIVE (NEGATIVE); UROBILINOGEN NORMAL mg/dL (< 2)
[2020-08-03 13:09] LABS: BACTERIA FEW HPF (NONE SEEN); SQUAMOUS EPITHELIAL 0-5 HPF (0-4); WHITE CELLS - URINE NONE SEEN HPF (0-1)
[2020-08-03 14:33] LABS: CKMB 2.6 U/L (0.0-3.6); CREATINE KINASE 528 UL (21-232); TROPONIN-I 0.035 ng/mL (0.000-0.060)
[2020-08-03 17:11] VITALS: BP 113/70
[2020-08-03 19:40] VITALS: BP 123/66
[2020-08-03 20:21] LABS: CKMB 2.7 U/L (0.0-3.6); CREATINE KINASE 504 UL (21-232)
[2020-08-03 20:26] LABS: TROPONIN-I < 0.017 ng/mL (0.000-0.060)
[2020-08-04 00:54] VITALS: BP 118/63
--- NOTE | 2020-08-04 03:24 | NUR ---
ASSESSED AT THE BEGINNING OF THE SHIFT. PT IS ALERT AND ORIENTED, ABLE TO VERBALIZE NEEDS. HE IS NOW WEARING HIGH FLOW O2 AND IT HAS BEEN UP TO 10 BUT IS NOW AT 5 LITERS. HE CONTINUES TO HAVE BACK PAIN AND IS USING A URINAL TO STAY IN BED. TONIGHT HE HAS BEEN SUPPLIED WITH A BIPAP AND HE HAS RESTED WELL AFTER TAKING HIS PAIN MEDS ORDERED AT BEDTIME.
[2020-08-04 05:00] VITALS: BP 120/65
[2020-08-04 06:59] LABS: BASOPHILS 0 % (0-2); EOSINOPHILS 0 % (0-7); HEMATOCRIT 35.3 % (42.0-54.0); HEMOGLOBIN 11.4 g/dL (13.5-17.5); IMMATURE GRANULOCYTES 0.2 % (0-5); LYMPHOCYTE ABS# 0.43 10x3/uL (1.32-3.57); LYMPHOCYTES 4.9 % (15-50); MCH 29.8 pg (26.0-34.0); MCHC 32.3 g/dL (31.0-37.0); MCV 92.2 fL (80.0-100.0); MEAN PLATELET VOLUME 9.3 fL (7.4-10.4); NEUTROPHIL ABS# 7.99 10x3/uL (1.78-5.38); NEUTROPHILS 90.9 % (40-80); PLATELET COUNT 184 10x3/uL (130-400); RBC 3.83 10x6/uL (4.20-6.10); RDW 13.6 % (11.5-14.5)
[2020-08-04 07:17] LABS: WBC 8.8 10x3/uL (4.8-10.8)
[2020-08-04 07:23] LABS: ALBUMIN 3.2 g/dL (3.4-5.0); ANION GAP 16.4 mmol/L (8-16); BILIRUBIN - TOTAL 0.47 mg/dL (0.2-1.3); CALCIUM 8.7 mg/dL (8.5-10.1); CARBON DIOXIDE 23.1 mmol/L (21.0-32.0); CREATININE - SERUM 1.3 mg/dL (0.6-1.3); MAGNESIUM - SERUM 2.2 mg/dL (1.8-2.4); POTASSIUM - SERUM 4.5 mmol/L (3.5-5.1); PROTEIN - SERUM 6.6 g/dL (6.4-8.2)
[2020-08-04 08:09] VITALS: BP 118/77
--- NOTE | 2020-08-04 09:05 | NUR ---
AWAKE AND ALERAT. ORIENTED X3. NO C/O AT THIS TIME. VERY SOB WITH EXERTION. LUNGS ARE CLEAR BUT DIMINISHED THROUGHOUT, NO COUGH NOTED. SKIN IS INTACT WTIHOUT REDNESS IV TO RIGHT FOREARM IS PATENT WITHOUT REDNESS AT INSERTION SITE. ATE MOST OF BREAKFAST TRAY. DENIES NEEDS.
--- NOTE | 2020-08-04 10:00 | NUR ---
ATE MOST OF BREAKFAST. TOOK AM MEDS WITHOUT DIFFICULTY. DENIES NEEDS.
--- NOTE | 2020-08-04 11:30 | NUR ---
PULSE OX SHOWS 80%. UNABLE TO INCREASE PLACED ON BIPAP AT THIS TIME. SATS AT 96%. WILL MONITOR.
[2020-08-04 12:04] VITALS: BP 133/58
--- NOTE | 2020-08-04 14:30 | NUR ---
PATIENT IS [place]. O2 SAT AT 80%. PLACED ON BIPAP. RESPIRATORY HERE. WILL MONITOR.
[2020-08-04 17:29] VITALS: BP 138/68
--- NOTE | 2020-08-04 19:34 | NUR ---
ATE MOST OF SUPPER. DENIES NEEDS. NO CHANGES NOTED.
--- NOTE | 2020-08-04 19:49 | NUR ---
PATIENT RESTING IN BED WITH GUEST AT BEDSIDE AND DENIES NEEDS AT THIS TIME. BED IN LOWEST POSITION AND CALL LIGHT IN REACH. ENCOURAGED PATIENT TO CALL WITH NEEDS.
--- NOTE | 2020-08-04 20:44 | NUR ---
ADMINISTERED MEDS PER ORDERS. PATIENT KENISHA WELL. ENCOURAGED TO CALL WITH NEEDS.
[2020-08-04 20:50] VITALS: BP 139/61
[2020-08-05 04:39] VITALS: BP 135/72
[2020-08-05 06:13] LABS: BASOPHILS 0 % (0-2); EOSINOPHILS 0 % (0-7); HEMATOCRIT 34.6 % (42.0-54.0); HEMOGLOBIN 11.2 g/dL (13.5-17.5); IMMATURE GRANULOCYTES 0.2 % (0-5); LYMPHOCYTE ABS# 0.42 10x3/uL (1.32-3.57); LYMPHOCYTES 4.2 % (15-50); MCH 29.9 pg (26.0-34.0); MCHC 32.4 g/dL (31.0-37.0); MCV 92.3 fL (80.0-100.0); MEAN PLATELET VOLUME 9.5 fL (7.4-10.4); MONOCYTES 5.2 % (2-11); NEUTROPHIL ABS# 9.08 10x3/uL (1.78-5.38); NEUTROPHILS 90.4 % (40-80); PLATELET COUNT 206 10x3/uL (130-400); RBC 3.75 10x6/uL (4.20-6.10); RDW 13.9 % (11.5-14.5)
[2020-08-05 06:21] LABS: ALBUMIN 3.2 g/dL (3.4-5.0); ANION GAP 12.8 mmol/L (8-16); BILIRUBIN - TOTAL 0.39 mg/dL (0.2-1.3); CALCIUM 8.8 mg/dL (8.5-10.1); CARBON DIOXIDE 23.1 mmol/L (21.0-32.0); CREATININE - SERUM 1.4 mg/dL (0.6-1.3); MAGNESIUM - SERUM 2.4 mg/dL (1.8-2.4); POTASSIUM - SERUM 4.9 mmol/L (3.5-5.1); PROTEIN - SERUM 6.4 g/dL (6.4-8.2)
--- NOTE | 2020-08-05 08:05 | NUR ---
AWAKE AND ALERT. ORIENTED X3. NO C/O AT THIS TIME. LUNGS ARE DIMINISHED THROUGHOUT, OCCASSIONAL DRY COUGH NOTED. O2 AT 6L HIGH FLOW. SKIN IS INTACT WTIHOUT REDNESS. IV TO RIGHT FOREARM IS PATENT WITHOUT REDNESS AT INSERTION SITE. VOIDED CLEAR YELLOW URINE IN URINAL. DENIES NEEDS. UD IN PROGRESS.
[2020-08-05 09:04] VITALS: BP 154/78
--- NOTE | 2020-08-05 10:00 | NUR ---
AMBULATED IN HALLWAY WITH PT USING RW. SATS AROUND 89% WITH ACTIVITY. ASSISTED TO SHOWER PER STAFF AND LINENS CHANGED. REPOSITIONED IN BED FOR COMFORT.
--- NOTE | 2020-08-05 11:47 | NUR ---
O2 AT 4, PATIENT ABLE TO GET UP TO BEDSIDE AND STAND BY HIMSELF. PATIENT WALKED TO DOORWAY AND NSG CHECKED HIS O2 SAT, WHICH DROPPED TO 88. NSG SAID TO BUMP HIS O2 UP TO 6. PATIENT WALKED 750 FEET WITH CGA. PATIENT O2 SAT AT 90 AFTER WALK.
[2020-08-05 12:06] VITALS: BP 161/83
[2020-08-05 16:48] VITALS: BP 129/63
--- NOTE | 2020-08-05 18:56 | NUR ---
ATE MOST OF SUPPER. DENIES NEEDS. NO CHANGES NOTED.
[2020-08-05 20:05] VITALS: BP 96/74
[2020-08-06 06:35] LABS: BASOPHILS 0.1 % (0-2); EOSINOPHILS 0 % (0-7); HEMATOCRIT 35.2 % (42.0-54.0); HEMOGLOBIN 11.7 g/dL (13.5-17.5); IMMATURE GRANULOCYTES 0.6 % (0-5); LYMPHOCYTE ABS# 0.62 10x3/uL (1.32-3.57); LYMPHOCYTES 7.1 % (15-50); MCH 30.5 pg (26.0-34.0); MCHC 33.2 g/dL (31.0-37.0); MCV 91.7 fL (80.0-100.0); MEAN PLATELET VOLUME 9.2 fL (7.4-10.4); MONOCYTES 6.3 % (2-11); NEUTROPHIL ABS# 7.56 10x3/uL (1.78-5.38); NEUTROPHILS 85.9 % (40-80); PLATELET COUNT 224 10x3/uL (130-400); RBC 3.84 10x6/uL (4.20-6.10); RDW 13.9 % (11.5-14.5); WBC 8.8 10x3/uL (4.8-10.8)
[2020-08-06 06:50] LABS: ALBUMIN 3.2 g/dL (3.4-5.0); ANION GAP 15.3 mmol/L (8-16); BILIRUBIN - TOTAL 0.38 mg/dL (0.2-1.3); CALCIUM 8.6 mg/dL (8.5-10.1); CARBON DIOXIDE 24.4 mmol/L (21.0-32.0); CREATININE - SERUM 1.4 mg/dL (0.6-1.3); MAGNESIUM - SERUM 2.5 mg/dL (1.8-2.4); POTASSIUM - SERUM 4.7 mmol/L (3.5-5.1); PROTEIN - SERUM 6.2 g/dL (6.4-8.2)
[2020-08-06 09:22] VITALS: BP 198/94
--- NOTE | 2020-08-06 11:29 | NUR ---
O2 AT 4, PATIENT ABLE TO WALK 500 FEET WITHOUT ASST DEVICE WITH JUST CGA FOR SAFETY. PATIENT IS VERY MOBILE.
[2020-08-06] MEDS ORDERED: FLORAJEN3 CAPS460 MG PO (11:46)
[2020-08-06] MEDS ORDERED: CIPRO500 MG PO (11:46)
[2020-08-06] MEDS ORDERED: PREDNISONE10 MG PO (11:47)
--- NOTE | 2020-08-06 14:47 | NUR ---
I have reviewed this patient and I concur with the Shift Assessment completed by the Licensed Practical Nurse today this shift.
--- NOTE | 2020-08-06 17:06 | NUR ---
patient dc home, went over follow up appointments as well as medications, iv dc with catheter intact
== END 2020-08-06 17:07 | disposition home or self-care (01) | DRG 551 ==
LOC: D.ER 11:46 → D.MS 15:42 → OBSVTIME 15:42 → D.MS 08-03 16:18
PROVIDERS: Family Medicine; ADMIT Emergency Medicine; ATTEND Emergency Medicine
DX: S32.019A Unspecified fracture of first lumbar vertebra, initial encounter for closed fracture (principal); J96.21 Acute and chronic respiratory failure with hypoxia; J18.9 Pneumonia, unspecified organism; M62.82 Rhabdomyolysis; V49.9XXA Car occupant (driver) (passenger) injured in unspecified traffic accident, initial encounter; I25.10 Atherosclerotic heart disease of native coronary artery without angina pectoris; I73.9 Peripheral vascular disease, unspecified; Z85.46 Personal history of malignant neoplasm of prostate; J43.9 Emphysema, unspecified; I12.9 Hypertensive chronic kidney disease with stage 1 through stage 4 chronic kidney disease, or unspecified chronic kidney disease; N18.9 Chronic kidney disease, unspecified; N40.0 Benign prostatic hyperplasia without lower urinary tract symptoms; D64.9 Anemia, unspecified; G47.33 Obstructive sleep apnea (adult) (pediatric)

== ENCOUNTER → 2020-09-03 10:17 | Outpatient (CLI) | payer MEDICARE, BC ==
[2020-08-02 17:07] VITALS: BMI 28.5
[~2020-09-03 10:17] MED LIST changes: +CIPRO500 MG PO; +FLORAJEN3 CAPS460 MG PO; +PREDNISONE10 MG PO
== END | disposition home or self-care (01) ==
LOC: D.RAD 10:17
PROVIDERS: ATTEND Internal Medicine Pulmonary Disease
DX: R05 Cough (principal); R06.02 Shortness of breath; J44.9 Chronic obstructive pulmonary disease, unspecified